=== PATIENT | female | born 1950 | race Caucasian/White ===

== ENCOUNTER → 2022-12-26 | Outpatient (CLI) | payer MEDICARE, OTHER | LOC: ORTHO 13:25 | PROVIDERS: ATTEND Orthopaedic Surgery | DX: G56.03 Carpal tunnel syndrome, bilateral upper limbs (principal) | CPT/HCPCS: 99203 ==

== ENCOUNTER 2023-01-06 05:28 | Outpatient (CLI) | payer MEDICARE, OTHER ==
[~2023-01-06] VITALS: Ht 165.1 cm; Wt 83.5 kg
[2023-01-07] MEDS ORDERED: LISI20TA26 PO (09:33)
[2023-01-07] MEDS ORDERED: AMLO-250 PO (09:33)
== END 2023-01-07 09:39 | disposition home or self-care (01) ==
LOC: PREOP 05:28
PROVIDERS: ATTEND Orthopaedic Surgery
DX: Z01.818 Encounter for other preprocedural examination (principal)

== ENCOUNTER 2023-01-13 07:45 | Day surgery (SDC) | payer MEDICARE, OTHER ==
[2023-01-13] VITALS (8 sets, daily range): BP systolic 102–181; BP diastolic 66–81
[~2023-01-13] VITALS: Ht 165.1 cm; Wt 83.5 kg
[~2023-01-13 07:45] MED LIST: AMLO-250 PO; LISI20TA26 PO
[2023-01-13] MEDS ORDERED: BUPIVACAINE 0.5% 10 ML VIAL ONE (07:53)
[2023-01-13] MEDS ORDERED: LIDOCAINE 1% w/EPI 1:100,000 20 ML VIAL ONE (07:53)
[2023-01-13] MEDS ORDERED: LIDOCAINE 1% INJ 20 ML VIAL ONE (07:53)
[2023-01-13] MEDS ORDERED: LACTATED RINGERS 1,000 ML 1,000 ML IV PRN (08:00)
[2023-01-13] MEDS ORDERED: ceFAZolin INJECTION 2,000 MG in NS (IVPB) 50 ML 50 ML IV ONE (08:00)
--- NOTE | 2023-01-13 08:17 | Progress Note-Pre Operative ---
Pre-Operative Progress Note Date of Available H&P: Dec 26, 2022 Date H&P Reviewed: Jan 13, 2023 Time H&P Reviewed: 08:10 History & Physical: H&P Reviewed, Patient Examed, No changes noted Pre-Operative Diagnosis: Left Carpal Tunnel Syndrome ZAINAB BELL MD Jan 13, 2023 08:17
[2023-01-13] MEDS ORDERED: FAMOTIDINE INJ 20MG/2ML VIAL IVP ONE (08:30)
[2023-01-13] MEDS ORDERED: ONDANSETRON INJECTION 4 MG/2 ML (SDV) IVP ONE (08:30)
[2023-01-13] MEDS ORDERED: LIDOCAINE 1% w/EPI 1:100,000 20 ML VIAL INJ ONE (09:45)
[2023-01-13] MEDS ORDERED: Neomycin/Polymixin/Bacitracin OINTMENT 15 GM ONE (09:46)
--- NOTE | 2023-01-13 09:53 | Operative Report - Ortho ---
Operative Report Surgeon (s)/Rn Pain Management (s) Surgeon ZAINAB BELL MD Rn Pain Management n/a Pre-Operative Diagnosis Left Carpal Tunnel Syndrome Post-Operative Diagnosis same Operative Report Date of Procedure: Jan 13, 2023 Name of Procedure Performed: Left Carpal Tunnel Release Description & Findings After obtaining informed consent and marking the patient in the preoperative holding area, the patient was administered IV antibiotics. The patient was t aken to the operating room and sedation was induced. Local anesthetic was placed. The left upper extremity was prepped and draped in the usual sterile fashion. Surgical timeout was taken. Incision was made just ulnar to the thenar crease. Blunt dissection was carried down to the longitudinal fibers of the palmar fascia; these were divided in line revealing the transverse carpal ligament. Beginning distally and working proximally, carpal tunnel release was performed. Nerve protector was placed and release was completed back to the level of the forearm fascia. Probe was inserted and release was palpably complete. Tourniquet was dropped and hemostasis was achieved. Wound was closed with 4-0 nylon. Wound was dressed with antibiotic ointment, xeroform, 4x4s, ezequiel, ABD for soft splint, cast padding, and TAMERA wrap. Patient tolerated the procedure well and was stable to the recovery room. Anesthesia Type MAC plus local Estimated Blood Loss minimal Specimen(s) collected/removed None ZAINAB BELL MD Jan 13, 2023 09:53
[2023-01-13] MEDS ORDERED: OXC5T PO (09:55)
[2023-01-13] MEDS ORDERED: LIDOCAINE 1% INJ 20 ML VIAL INJ ONE (10:01)
--- NOTE | 2023-01-13 10:02 | Anesthesia-General Post-Op ---
MAC Patient Condition Mental Status/LOC: Same as Preop Cardiovascular: Satisfactory Nausea/Vomiting: Absent Respiratory: Satisfactory Pain: Controlled Complications: Absent Post Op Complications Complications None Follow Up Care/Instructions Patient Instructions None needed. Anesthesiology Discharge Order Discharge Order Patient is doing well, no complaints, stable vital signs, no apparent adverse anesthesia problems. No complications reported per nursing. ZAINAB HAMPTON CRNA Jan 13, 2023 10:02
[2023-01-13] MEDS ORDERED: ONDANSETRON INJECTION 4 MG/2 ML (SDV) IVP PRN (10:15)
[2023-01-13] MEDS ORDERED: morphine INJ 10 MG/ML 1ML (SYR OR VIAL) IVP ONE (10:15)
== END 2023-01-13 11:20 | disposition home or self-care (01) ==
LOC: SDC 07:45
PROVIDERS: ATTEND Orthopaedic Surgery
DX: G56.03 Carpal tunnel syndrome, bilateral upper limbs (principal)
CPT/HCPCS: 87081